=== PATIENT | female | born 1950 | race Caucasian/White ===

== ENCOUNTER → 2017-12-27 | Outpatient (CLI) | payer OTHER ==
[~2017-12-27] MED LIST: FUROSEMIDE 40 MG/4 ML VIAL ONE
== END ==
LOC: FIMAGING 08:17
PROVIDERS: ATTEND Physician Assistant Medical
PROC: CT131ZZ Planar Nuclear Medicine Imaging of Kidneys, Ureters and Bladder using Technetium 99m (Tc-99m) (ICD-10-PCS; principal; 2017-12-27)
DX: N20.0 Calculus of kidney (principal)
CPT/HCPCS: 78708; A9562; J1940

== ENCOUNTER → 2017-12-28 | Outpatient (CLI) | payer OTHER | LOC: FIMAGING 09:48 | PROVIDERS: ATTEND Physician Assistant Medical | DX: N13.2 Hydronephrosis with renal and ureteral calculous obstruction (principal); R35.0 Frequency of micturition; K80.20 Calculus of gallbladder without cholecystitis without obstruction ==

== ENCOUNTER → 2018-02-01 | Outpatient (CLI) | payer OTHER | LOC: FIMAGING 10:16 | PROVIDERS: ATTEND Internal Medicine | DX: Z12.31 Encounter for screening mammogram for malignant neoplasm of breast (principal) ==

== ENCOUNTER 2018-02-23 09:56 | Inpatient (IN) | payer OTHER ==
[2018-02-23 10:58] LABS: PLATELET COUNT 179 10^3/uL (150-400)
--- NOTE | 2018-02-25 14:54 | CPEKG ---
Test Reason : PREOP Blood Pressure : / mmHG Vent. Rate : 058 BPM Atrial Rate : 057 BPM P-R Int : 144 ms QRS Dur : 086 ms QT Int : 416 ms P-R-T Axes : 015 019 021 degrees QTc Int : 409 ms SINUS RHYTHM ATRIAL PREMATURE COMPLEX Confirmed by Nirav Carty ([id number]) on 02/25/2018 2:54:17 PM Referred By: Confirmed By:Nirav Carty
--- NOTE | 2018-02-28 16:34 | GHP ---
DATE OF ADMISSION: 03/01/2018 HISTORY OF PRESENT ILLNESS: This is a 67-year-old lady who has a nonfunctioning left kidney that is related to stone disease and she has been treated in the past with extracorporeal shockwave lithotrip sy. At the present time, she has a Mag 3 that describes 5% function of the left kidney. It is quite hydronephrotic and she has a 2 cm stone that is causing obstruction. Options discussed and she is a dmitted for a robotic-assisted left nephrectomy, partial ureterectomy. PAST HISTORY: Acquired UPJ obstruction, left hypothyroidism, kidney stones, vertigo. PAST SURGICAL HISTORY: Bladder sling and breast surgery. MEDICATIONS: Gabapentin, levothyroxine, probiotic. ALLERGIES: Epinephrine. FAMILY HISTORY: Heart disease. SOCIAL HISTORY: Current alcohol consumption is moderate. Nonsmoker. REVIEW OF SYSTEMS: Negative cardiac, respiratory, GI, and endocrine. PHYSICAL EXAMINATION: VITAL SIGNS: Stable. CHEST: Clear. HEART: Regular rate and rhythm. ABDOM EN: Normal. No organomegaly, rebound, or guarding. EXTREMITIES: Lower extremities are normal at t he present time. ASSESSMENT: She has a Mag 3 confirming minimal to no function of the left kidney due to obstructing renal stone. At the present time, we have recommended she undergo a nephrectomy and she is to be adm itted for that procedure. /[id number]/MODL
[2018-03-01] MEDS ORDERED: ceFAZolin 2 GM/DEXTROSE 100 ML IV ONE (05:34)
[2018-03-01] MEDS ORDERED: LIDOCAINE 1% 2 ML INJ ID PRN (05:35)
[2018-03-01] MEDS ORDERED: LR 1,000 ML IV ONE (05:35)
[2018-03-01] MEDS ORDERED: SCOPOLAMINE HYDROBROMIDE 1 MG/3 DAYS PATCH TD ONE (06:49)
[2018-03-01] MEDS ORDERED: MIDAZOLAM 2 MG/2 ML VIAL IVP ONE (06:49)
--- NOTE | 2018-03-01 06:56 | PDANEPAE ---
ANE History of Present Illness 67 Y/O FEMALE HERE FOR NEPHRECTOMY LEFT. ANE Past Medical History - Cardiovascular History Hx Hypertension: No Hx Arrhythmias: No Hx Chest Pain: No Hx Coronary Artery / Peripheral Vascular Disease: No Hx CHF / Valvular Disease: No Hx Palpitations: No Cardiovascular History Comment: high cholesterol - Pulmonary History Hx COPD: No Hx Asthma/Reactive Airway Disease: No Hx Recent Upper Respiratory Infection: No Hx Oxygen in Use at Home: No Hx Sleep Apnea: No Sleep Apnea Screening Result - Last Documented: Negative - Neurologic History Hx Cerebrovascular Accident: No Hx Seizures: No Hx Dementia: No Neurologic History Comment: paroxysmal vertigo - thought it was MS at first but it has never been proven, gabapentin helps - Endocrine History Hx Diabetes: No Endocrine History Comment: hypothyroid - Renal History Hx Renal Disorders: Yes Renal History Comment: renal stones. current dx acquired uteropelvic junction obstruction - Liver History Hx Hepatic Disorders: No - Neurological & Psychiatric Hx Hx Neurological and Psychiatric Disorders: No Neurological / Psychiatric History Comment: "under a lot of stress" - Cancer History Hx Cancer: No - Congenital Disorder History Hx Congenital Disorders: No - GI History Hx Gastrointestinal Disorders: No - Other Health History Other Health History: wears glasses. 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 torn rotator cuff, right. arthritis. upper plate - Chronic Pain History Chronic Pain: No - Surgical History Prior Surgeries: hysterectomy. lithotripsy for kidney stones. appy. tonsillectomy. wrist repair. foot surgery. bladder sling. broken nose repair. breast biopsies ANE Review of Systems Review of Systems: - Exercise capacity METS (RN): 3 METS ANE Patient History - Allergies Allergies/Adverse Reactions: epinephrine Allergy (Verified 02/20/18 17:55) Pt reports feeling "drunk," loss of leg control, slurred spe Anesthesia Allergy (Uncoded 02/20/18 17:55) Vomiting, sensitive to some general anesthetics - Home Medications Home Medications: Cholecalciferol Vit D3 [Vitamin D3 2000 units tab (OTC)] 2,000 units PO DAILY [Last Taken 02/22/18] Gabapentin [Neurontin 100 MG (*)] 100 mg PO TID 02/16/18 [Last Taken 03/01/18 04 :00] Levothyroxine [Synthroid 100 mcg (*)] 100 mcg PO DAILY06 02/16/18 [Last Taken 04:00] [place]-3 Fatty Acids [Fish Oil 1000 mg (*)] 1,000 mg PO DAILY 02/16/18 [Last Taken 02/22/18] RX: Herbals/Supplements -Info Only 1 ea PO DAILY 02/16/18 [Last Taken 02/22/18] - NPO status NPO Since - Liquids (Date): 02/28/18 NPO Since - Liquids (Time): 19:00 NPO Since - Solids (Date): 02/28/18 NPO Since - Solids (Time): 15:30 - Smoking Hx Smoking Status: Never smoked - Family Anes Hx Family Hx Anesthesia Complications: none ANE Labs/Vital Signs - Labs Result Diagrams: 02/23/18 10:13 02/23/18 10:13 - Vital Signs Blood Pressure: 162/99 Heart Rate: 62 Respiratory Rate: 16 O2 Sat (%): 96 Height: 162.56 cm Weight: 64.864 kg ANE Physical Exam - Airway Mallampati Score: Class 2 Mouth exam: poor dentition - Pulmonary Pulmonary: clear to auscultation - Cardiovascular Cardiovascular: regular rate and rhythym - ASA Status ASA Status: II, III ANE Anesthesia Plan Lines/Monitors: arterial line Total IV Anesthesia: Yes
--- NOTE | 2018-03-01 07:00 | PDHPUP ---
History & Physical Update H&P update statement: This history and physical update is based on an assessment of the patient which was completed after admission or registration (within 24 hours), but prior to the surgery/procedure. H&P update: H&P reviewed & patient examined, no change in patient's condition since H&P completed
[2018-03-01] MEDS ORDERED: PROPOFOL/EMULSION 500 MG/50 ML BOTTLE IV ONE ×3 (07:04→08:35)
[2018-03-01] MEDS ORDERED: fentaNYL 100 MCG/2 ML INJ ONE ×3 (07:14→10:44)
[2018-03-01] MEDS ORDERED: DEXAMETHASONE 4 MG/ML VIAL ONE (07:15)
[2018-03-01] MEDS ORDERED: KETAMINE 200 MG/20 ML VIAL ONE (07:15)
[2018-03-01] MEDS ORDERED: ROCURONIUM 50 MG/5 ML VIAL ONE ×2 (08:06)
[2018-03-01] MEDS ORDERED: PETROLAT,WHT/MIN OIL/SOD CHL 3.5 GM OPHT.OINT ONE (08:10)
[2018-03-01] MEDS ORDERED: BUPIVACAINE 0.5% 30 ML SDV ONE (08:11)
--- NOTE | 2018-03-01 08:47 | POSTANESTH ---
Post Anesthetic Evaluation Respiratory Status: Normal, Stable Level of Consciousness/Mental Status: Can Participate in Eval Pain Control: Adequate, Prn Tx Ordered Nausea/Vomiting Control: Adequate, Prn Tx Ordered (TIVA)
[2018-03-01] MEDS ORDERED: ONDANSETRON 4 MG/2 ML VIAL ONE (09:13)
[2018-03-01] MEDS ORDERED: SUGAMMADEX SODIUM 200 MG/2 ML VIAL IVP ONE ×2 (09:13→12:13)
[2018-03-01] MEDS ORDERED: PROPOFOL 200 MG/20 ML VIAL ONE (09:15)
[2018-03-01] MEDS ORDERED: LR 500 ML IV PRN (09:19)
[2018-03-01] MEDS ORDERED: LABETALOL HCL 5 MG/ML 20 ML MDV IVP PRN (09:19)
[2018-03-01] MEDS ORDERED: DEXAMETHASONE 4 MG/ML VIAL IVP PRN (09:19)
[2018-03-01] MEDS ORDERED: DIAZEPAM 5 MG/ML 1 ML SYR IVP PRN (09:19)
[2018-03-01] MEDS ORDERED: MEPERIDINE 25 MG/0.5 ML AMP IVP PRN (09:19)
[2018-03-01] MEDS ORDERED: HYDROmorphONE/DILAUDID 2 MG/ML INJ IVP PRN (09:19)
[2018-03-01] MEDS ORDERED: NALOXONE HCL 0.4 MG/ML INJ IVP PRN ×2 (09:19→09:47)
[2018-03-01] MEDS ORDERED: ONDANSETRON 4 MG/2 ML VIAL IVP PRN (09:19)
[2018-03-01] MEDS ORDERED: PROMETHAZINE HCL 25 MG/ML INJ IVP PRN (09:19)
[2018-03-01] MEDS ORDERED: METOCLOPRAMIDE 10 MG/2 ML VIAL IVP PRN ×2 (09:19→09:47)
[2018-03-01] MEDS ORDERED: hydrALAZINE 20 MG/ML VIAL ONE (09:37)
[2018-03-01] MEDS ORDERED: HYDROmorphONE/DILAUDID 6 MG/30 ML PCA IV PRN (09:47)
[2018-03-01] MEDS ORDERED: oxyCODONE IR 5 MG TAB PO PRN (09:47)
--- NOTE | 2018-03-01 09:47 | POSTOPPROG ---
Post Op Note Date of Operation: 03/01/18 (dictated) Surgeon: Froilan Montano Clinical Training Coordinator: BARBY Anesthesiologist: Precious Guzman Anesthesia: GET(General Endotracheal) Pre-op Diagnosis: left nephrolithiasis, left hydronephrosis Procedure: left RA nephrectomy and partial ureterectomy Inf/Abcess present in the surg proc area at time of surgery?: No EBL: Minimal Specimen(s): sent
[2018-03-01] MEDS ORDERED: ZOLPIDEM TARTRATE 5 MG TAB PO PRN (09:48)
--- NOTE | 2018-03-01 10:30 | GOP ---
DATE OF OPERATION: 03/01/2018 SURGEON: Froilan Montano MD BOAT ENGINES INSTALLER: Seda Silverman CFA ANESTHESIOLOGIST: , Dr. Precious Guzman. PREOPERATIVE DIAGNOSIS: Nonfunctioning left hydronephrotic kidney with stones. POSTOPERATIVE DIAGNOSIS: Nonfunctioning left hydronephrotic kidney with stones. PROCEDURE PERFORMED: Nephrectomy, partial ureterectomy, left side, robotically assisted. FINDINGS: SPECIMENS: Sent for pathology. ESTIMATED BLOOD LOSS: Less than 50 mL. DESCRIPTION OF PROCEDURE: After appropriate general anesthesia, prepped and draped in normal sterile fashion, appropriate position and appropriate time-out, a Veress needle was placed in the left upper quadrant and inflated the intraabdominal cavity to 15 mmHg pressure. Then we placed a 12 mm camera port. She had a 15 mm development assistant port and two 8 mm robot arm ports placed. She had adhesions intra-a bdominally that were taken down sharply, and confirmed no bowel or vascular injury during that dissec tion. Then I mobilized the left colon just as it crossed over the iliac vessels, up to where the col o-splenic ligament attachments were. I identified the ureter and the gonadal vein, and dissected casper t up where I could identify the renal vein and renal artery of the left kidney and a vascular stapler was used to provide hemostatic closure and division of the vessel. I then at that point, divided th e ureter and gonadal vein as it crossed over the iliac vessels, and then dissected out the kidney and left the perinephric fat on the kidney. She had some inflammatory reaction noted at the superior po le of the kidney. I was able dissect the pancreas and the spleen separate from that, and no damage t o either of those organs. The left adrenal gland was partially gone across with the vascular clamp/s tapling device because of its adhesion and inflammation attachment. Then, at that point, the kidney was open and I aspirated over 250 mL of fluid, placed this in a bag and then decreased the intraabdom inal pressure. There was no bleeding noted. I did place Surgicel at the tip of the spleen and the a ttachment of the upper kidney to that area just because of some small venous oozing. There was no po oling of blood identified at that point. I looked all the operative site. There was no staining of the intraabdominal space, no bleeding and no bowel injury of any kind identified. At that point, I d id a suture closure with a fascial closure device of the camera port, and then opened the development assistant p ort up to where I could deliver the bag and the specimen out, and then closed that fascial layer with an 0 Vicryl. The subcutaneous tissue was hemostatic and then 4-0 Monocryl was used to close all the skin sites. Marcaine was used to do the local field block. COMPLICATIONS: None. Copy requested to: Dr. Fung /[id number]/MODL
[2018-03-01] MEDS: fentaNYL 100 MCG/2 ML INJ IVP PRN ×3 (10:46→11:34)
[2018-03-01] MEDS: D5W 1/2 NS W/ 20 KCl/L 1,000 ML IV SCH ×2 (11:56→22:13)
[2018-03-01] MEDS ORDERED: morphINE PCA 30 MG/30 ML PCA IV PRN (14:05)
--- NOTE | 2018-03-01 15:37 | PDMN ---
Medical Necessity Medical necessity: CPT 93371 L nephrectomy with partial ureterectomy, [facility] IP only
[2018-03-01] MEDS: GABAPENTIN 100 MG CAP PO SCH (22:13)
[2018-03-02 05:28] LABS: PLATELET COUNT 175 10^3/uL (150-400)
[2018-03-02] MEDS: LEVOTHYROXINE 100 MCG TAB PO SCH (06:26)
[2018-03-02] MEDS: D5W 1/2 NS W/ 20 KCl/L 1,000 ML IV SCH (07:46)
[2018-03-02] MEDS: GABAPENTIN 100 MG CAP PO SCH ×3 (07:51→20:51)
--- NOTE | 2018-03-02 08:40 | SOAPPROG ---
SOAP Progress Note Assessment/Plan: Assessment: Hydronephrosis concurrent with and due to calculi of kidney and ureter Acute POD #1 left nephrectomy, Continue care, consider DC when appropriate Plan: cont care 03/02/18 13:07 Subjective: doing well Objective: Vital Signs Temp Pulse Resp BP Pulse Ox 36.8 C 67 16 157/88 H 99 03/02/18 04:45 03/02/18 04:45 03/02/18 04:45 03/02/18 04:45 03/02/18 04:45 Laboratory Results 03/02/18 04:44 03/02/18 04:44 03/01/18 03/02/18 03/03/18 05:59 05:59 05:59 Intake Total 1750 1100 Output Total 1800 Balance -50 1100 Physical Exam - Physical Exam General Appearance: alert Neck: supple Respiratory: No respiratory distress Cardiac/Chest: regular rate, rhythm Abdomen: soft Back: No CVA tenderness Skin: warm/dry Extremities: No calf tenderness Neuro/Psych: alert, oriented x 3 ICD10 Worksheet Patient Problems: Problems Problem Status Onset Hydronephrosis concurrent with and due to calculi of kidney and ureter Acute - ICD10 Problem Qualifiers (1) Hydronephrosis concurrent with and due to calculi of kidney and ureter
[2018-03-02] MEDS ORDERED: Herbals/Supplements -Info Only PO SCH (09:00)
[2018-03-02] MEDS: CHOLECALCIFEROL VIT D3 2,000 UNITS TAB/CAP PO SCH (10:20)
[2018-03-02] MEDS: OMEGA-3 FATTY ACIDS 1,000 MG CAP PO SCH (10:20)
--- NOTE | 2018-03-02 12:15 | ASMTCMCOM ---
CM Note CM Note Notes: Pt is a 67 y/o female with a hx of kidney stones. She presented with no function in her left kidney and with stones that appeared to be inbedded in the renal wall. She had her left kidney removed and had a partial ureterectomy. Pt lives independently and works at [employer]. No CM needs are anticipated. CM will follow for changes. D/C Plan: Anticipate independent. Date Signed: 03/02/2018 12:14 PM Electronically Signed By:Josefa York
[2018-03-02] MEDS: ACETAMINOPHEN 325 MG TAB PO PRN ×2 (13:26→20:51)
--- NOTE | 2018-03-02 13:50 | ASMTCMCOM ---
CM Note CM Note Notes: Spoke with pt in the room. Pt admitted for hydronephrosis from embedded calculi, leading to a nephrectomy. Pt lives alone and has son who has "disowned her after asking her to move to [place]". Pt lives in room she rents in a [employer] basement and has two cats who are currently boarded. Pt has no friends or family who can help and pt states she cannot afford to continue boarding them and will need to return home, however is concerned about coping on her own. Pt drove her car here and is insisting on driving it home upon discharge. No therapies ordered at this time. RN requested to order for eval for PT/OT homecare. Pt states she is needing help getting to the bathroom and is concerned about stairs at home. CM to follow. D/C Plan: PT/OT homecare possibly. Pending eval Date Signed: 03/02/2018 01:48 PM Electronically Signed By:Barbie Orosco
--- NOTE | 2018-03-02 16:49 | ASMTCMCOM ---
CM Note CM Note Notes: ADDENDUM: Left message with [employer] to request meals for pt per pt's request. Pt lives in [place]. Date Signed: 03/02/2018 04:33 PM Electronically Signed By:Barbie Orosco
[2018-03-03] MEDS: LEVOTHYROXINE 100 MCG TAB PO SCH (05:53)
[2018-03-03] MEDS: ACETAMINOPHEN 325 MG TAB PO PRN ×3 (05:53→22:37)
[2018-03-03] MEDS: GABAPENTIN 100 MG CAP PO SCH ×3 (05:53→22:36)
[2018-03-03] MEDS: OMEGA-3 FATTY ACIDS 1,000 MG CAP PO SCH (10:02)
[2018-03-03] MEDS: CHOLECALCIFEROL VIT D3 2,000 UNITS TAB/CAP PO SCH (10:02)
--- NOTE | 2018-03-03 10:26 | SOAPPROG ---
JULIETA Progress Note Assessment/Plan: Assessment: Hydronephrosis concurrent with and due to calculi of kidney and ureter Acute POD #2 left nephrectomy, Continue care, consider DC when appropriate, feels she can not get her cats today so prefers staying. 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 Objective: Vital Signs Temp Pulse Resp BP Pulse Ox 36.7 C 80 18 132/96 H 91 L 03/03/18 08:00 03/03/18 08:00 03/03/18 03:52 03/03/18 08:00 03/03/18 08:00 Laboratory Results 03/02/18 04:44 03/02/18 04:44 03/02/18 03/03/18 03/04/18 05:59 05:59 05:59 Intake Total 1750 4139 Output Total 1800 1750 Balance -50 2389 Physical Exam - Physical Exam General Appearance: alert Neck: supple Respiratory: No respiratory distress Cardiac/Chest: regular rate, rhythm Abdomen: soft, distended Back: No CVA tenderness Extremities: No calf tenderness, No Kim's sign Neuro/Psych: oriented x 3 ICD10 Worksheet Patient Problems: Problems Problem Status Onset Hydronephrosis concurrent with and due to calculi of kidney and ureter Acute - ICD10 Problem Qualifiers (1) Hydronephrosis concurrent with and due to calculi of kidney and ureter
[2018-03-03] MEDS: SENNOSIDES/DOCUSATE SODIUM TAB PO PRN ×2 (11:52→22:36)
[2018-03-04] MEDS: LEVOTHYROXINE 100 MCG TAB PO SCH (06:28)
[2018-03-04] MEDS: CHOLECALCIFEROL VIT D3 2,000 UNITS TAB/CAP PO SCH (09:28)
[2018-03-04] MEDS: OMEGA-3 FATTY ACIDS 1,000 MG CAP PO SCH (09:28)
[2018-03-04] MEDS: SENNOSIDES/DOCUSATE SODIUM TAB PO PRN (09:28)
[2018-03-04] MEDS: GABAPENTIN 100 MG CAP PO SCH ×3 (09:28→22:41)
[2018-03-04] MEDS: ACETAMINOPHEN 325 MG TAB PO PRN (09:28)
--- NOTE | 2018-03-04 11:07 | SOAPPROG ---
SOAP Progress Note Assessment/Plan: Assessment: POD 2 with slight ileus (no flatus p op and hypoactive BS) and concerns regarding ability to manage at home with snow Plan:Dulcolax suppository and observe 03/04/18 11:02 Objective: Vital Signs Temp Pulse Resp BP Pulse Ox 36.9 C 58 L 14 140/83 H 91 L 03/04/18 07:14 03/04/18 07:14 03/04/18 07:14 03/04/18 07:14 03/04/18 07:14 Laboratory Results 03/02/18 04:44 03/02/18 04:44 03/03/18 03/04/18 03/05/18 05:59 05:59 05:59 Intake Total 4139 700 Output Total 1750 1100 Balance 2389 -400 Physical Exam - Physical Exam Respiratory: lungs clear Abdomen: No normal bowel sounds (hypoactive BS) ICD10 Worksheet Patient Problems: Problems Problem Status Onset Hydronephrosis concurrent with and due to calculi of kidney and ureter Acute
[2018-03-04] MEDS ORDERED: BISACODYL 10 MG SUPP PR ONE ×2 (11:13→13:30)
[2018-03-05] MEDS: LEVOTHYROXINE 100 MCG TAB PO SCH (05:59)
[2018-03-05 07:34] VITALS: BP 130/77
[2018-03-05] MEDS: GABAPENTIN 100 MG CAP PO SCH (09:07)
[2018-03-05] MEDS: CHOLECALCIFEROL VIT D3 2,000 UNITS TAB/CAP PO SCH (09:08)
[2018-03-05] MEDS: OMEGA-3 FATTY ACIDS 1,000 MG CAP PO SCH (09:08)
--- NOTE | 2018-03-05 13:26 | SOAPPROG ---
SOLATRELL Progress Note Assessment/Plan: Assessment: Hydronephrosis concurrent with and due to calculi of kidney and ureter Acute POD #4 left nephrectomy, consider DC Plan:DC plan 03/05/18 13:25 Objective: Vital Signs Temp Pulse Resp BP Pulse Ox 36.9 C 64 16 130/77 H 91 L 03/05/18 07:30 03/05/18 07:30 03/05/18 07:30 03/05/18 07:30 03/05/18 07:30 Laboratory Results 03/02/18 04:44 03/02/18 04:44 03/04/18 03/05/18 03/06/18 05:59 05:59 05:59 Intake Total 700 700 Output Total 1100 Balance -400 700 ICD10 Worksheet Patient Problems: Problems Problem Status Onset Hydronephrosis concurrent with and due to calculi of kidney and ureter Acute - ICD10 Problem Qualifiers (1) Hydronephrosis concurrent with and due to calculi of kidney and ureter
--- NOTE | 2018-03-05 14:24 | ASDISCHSUM ---
Discharge Information Plan Status:Home with No Needs Medically Cleared to Leave:03/04/2018 Discharge Date:03/04/2018 CM D/C Disposition:Home, Routine, Self-Care ADT D/C Disposition:Home, Routine, Self-Care Projected Discharge Date:03/04/2018 Transportation at D/C:Self Discharge Delay Reason: Follow-Up Date:03/04/2018 Discharge Slot: Final Diagnosis: Placement Information Patient Contact Information Contact Name:ROYA Relationship:Mark Address: City: [facility] Phone: State/Zip Code: Email: Financial Information Financial Class:Medicare Primary Plan Desc:MEDICARE INPATIENT Primary Plan Number:[id number] Secondary Plan Desc:[facility] [place] Secondary Plan Number:[id number] Assessment Information LACE LACE Length of stay for Answers: 4-6 days current admission Acuity / Level of Answers: Yes Care: Did the patient have an inpatient admission? Comorbidities - select Answers: Other Notes: Hypothyroid all that apply # of Emergency department Answers: 0 visits in the last 6 months Score: 8 Date Signed: 03/05/2018 02:23 PM Electronically Signed By:ANDREAS Rivera [facility] CM Progress Note CM Note CM Note Notes: Pt is a 67 y/o female with a hx of kidney stones. She presented with no function in her left kidney and with stones that appeared to be inbedded in the renal wall. She had her left kidney removed and had a partial ureterectomy. Pt lives independently and works at [employer]. No CM needs are anticipated. CM will follow for changes. D/C Plan: Anticipate independent. Date Signed: 03/02/2018 12:14 PM Electronically Signed By:Josefa York [facility] Progress Note CM Note CM Note Notes: Spoke with pt in the room. Pt admitted for hydronephrosis from embedded calculi, leading to a nephrectomy. Pt lives alone and has son who has "disowned her after asking her to move to [place]". Pt lives in room she rents in a [employer] basement and has two cats who are currently boarded. Pt has no friends or family who can help and pt states she cannot afford to continue boarding them and will need to return home, however is concerned about coping on her own. Pt drove her car here and is insisting on driving it home upon discharge. No therapies ordered at this time. RN requested to order for eval for PT/OT homecare. Pt states she is needing help getting to the bathroom and is concerned about stairs at home. CM to follow. D/C Plan: PT/OT homecare possibly. Pending eval Date Signed: 03/02/2018 01:48 PM Electronically Signed By:Barbie Orosco [facility] Progress Note CM Jessica PATRICIO Note Notes: ADDENDUM: Left message with [employer] to request meals for pt per pt's request. Pt lives in [place]. Date Signed: 03/02/2018 04:33 PM Electronically Signed By:Barbie Orosco Intervention Information Intervention Type:*IM-Signed Date of Service:03/05/2018 01:51 PM Patient Type:Inpatient Staff Member:Laura Urrutia Hours: Discipline: Severity: Comment:
== END 2018-03-05 14:25 | disposition home or self-care (01) | DRG 661 ==
LOC: UNDOADMIN 09:56 → F3N 09:56 → F3E 03-01 04:53 → F1N 03-01 09:39
PROVIDERS: ADMIT Specialist; ATTEND Specialist
PROC: 0TT14ZZ Resection of Left Kidney, Percutaneous Endoscopic Approach (ICD-10-PCS; principal; 2018-03-01 07:15)
PROC: 8E0W4CZ Robotic Assisted Procedure of Trunk Region, Percutaneous Endoscopic Approach (ICD-10-PCS; principal; 2018-03-01 07:15)
DX: N13.2 Hydronephrosis with renal and ureteral calculous obstruction (principal); E78.00 Pure hypercholesterolemia, unspecified; H81.10 Benign paroxysmal vertigo, unspecified ear; E03.9 Hypothyroidism, unspecified
CPT/HCPCS: 97116-GP; 97161-GP; 97530-GP; G8978-GP-CJ; G8979-GP-CI; J0360; J0690; J1100; J1170; J2250; J2270; J2405; J2704; J3010

== ENCOUNTER → 2018-07-23 | Outpatient (CLI) | payer OTHER | LOC: FLAB 10:49 → FIMAGING 10:50 → EDSTATUS 12:03 | PROVIDERS: ATTEND Physician Assistant Medical | DX: N20.0 Calculus of kidney (principal); M47.816 Spondylosis without myelopathy or radiculopathy, lumbar region ==

== ENCOUNTER → 2018-08-15 | Outpatient (CLI) | payer OTHER | LOC: BHFA 13:30 | PROVIDERS: ATTEND Internal Medicine Cardiovascular Disease | DX: R06.02 Shortness of breath (principal); I25.10 Atherosclerotic heart disease of native coronary artery without angina pectoris; Z95.5 Presence of coronary angioplasty implant and graft | CPT/HCPCS: 78452; 93017; A9500; J2785 ==

== ENCOUNTER 2018-08-24 05:38 | Observation (INO) | payer OTHER ==
[2018-08-24] MEDS ORDERED: diphenhydrAMINE 25 MG CAP PO ONE ×2 (06:14→06:36)
[2018-08-24] MEDS ORDERED: DIAZEPAM 5 MG TAB PO ONE (06:14)
[2018-08-24] MEDS ORDERED: NS 1,000 ML IV ONE (06:14)
[2018-08-24] MEDS ORDERED: FAMOTIDINE 20 MG TAB PO ONE (06:14)
[2018-08-24] MEDS ORDERED: ASPIRIN EC 325 MG TAB PO ONE ×2 (06:14→06:36)
[2018-08-24] MEDS ORDERED: FAMOTIDINE 20 MG TAB ONE (06:36)
[2018-08-24] MEDS ORDERED: DIAZEPAM 5 MG TAB ONE (06:37)
[2018-08-24] MEDS ORDERED: CLOPIDOGREL BISULFATE 75 MG TAB ONE (06:57)
--- NOTE | 2018-08-24 07:13 | PDPROPOC ---
Sedation Plan of Care Sedation Plan of Care: mental status noted, patient educated of risks, benefits , alternatives, patient can tolerate sedation ASA Classification: ASA 2 Planned drugs: fentanyl, midazolam Mallampati Score: Class 2 Mallampati Reference Image: Patient passed 3-3-2 rule?: Yes
[2018-08-24] MEDS ORDERED: fentaNYL 100 MCG/2 ML INJ ONE (07:14)
[2018-08-24] MEDS ORDERED: LIDOCAINE 1% 300 MG/30 ML SDV ONE (07:14)
[2018-08-24] MEDS ORDERED: IOPAMIDOL (ISOVUE-370) 150 ML BTL IV ONE (07:14)
[2018-08-24] MEDS ORDERED: MIDAZOLAM 2 MG/2 ML VIAL ONE (07:14)
[2018-08-24 07:15] LABS: PLATELET COUNT 160 10^3/uL (150-400)
[2018-08-24] MEDS ORDERED: CLOPIDOGREL BISULFATE 75 MG TAB PO ONE (07:15)
[2018-08-24 07:25] LABS: PROTIME(PATIENT) 12.8 SEC (12.0-15.0)
[2018-08-24] MEDS ORDERED: BIVALIRUDIN 250 MG/5 ML VIAL IV ONE (08:16)
[2018-08-24] MEDS ORDERED: ATROPINE SULFATE 1 MG/10 ML SYR ONE (08:22)
[2018-08-24] MEDS ORDERED: NITROGLYCERIN 1,500 MCG/15 ML VIAL MISC ONE (08:22)
[2018-08-24] MEDS ORDERED: OXYCODONE/APAP 5/325 TAB PO PRN (09:02)
[2018-08-24] MEDS ORDERED: ATROPINE SULFATE 1 MG/10 ML SYR IVP PRN (09:02)
[2018-08-24] MEDS ORDERED: NITROGLYCERIN 0.4 MG BTL SL PRN (09:02)
[2018-08-24] MEDS ORDERED: HYDROCODONE/APAP 5/325 TAB PO PRN (09:02)
[2018-08-24] MEDS ORDERED: TEMAZEPAM 15 MG CAP PO PRN (09:02)
[2018-08-24] MEDS ORDERED: LORazepam 2 MG/ML INJ IVP PRN (09:02)
[2018-08-24] MEDS ORDERED: ONDANSETRON 4 MG/2 ML VIAL IVP PRN (09:02)
--- NOTE | 2018-08-24 09:48 | CPIP ---
[f rep st] INVASIVE CARDIAC PROCEDURE DATE OF PROCEDURE: 08/24/2018 INDICATIONS FOR PROCEDURE: Positive stress test, chest pain. PROCEDURE: 1. Nonselective right groin sheathogram. 2. 7-Indonesian sheath right common vein. 3. Right heart catheterization, Dora-Romulo catheter. 4. Bilateral coronary angiography. 5. Left heart catheterization. 6. Left ventriculogram. 7. Percutaneous coronary intervention of mid left circumflex utilizing Synergy 2.25 x 16 mm drug-eluting stent. HISTORY: Briefly, this is a 68-year-old female with history of coronary artery disease status post PCI at [facility]. The patient has been complaining of shortness of breath with minimal exertion. This is considered to be anginal equivalent. The patient was consented for left heart catheterization. DESCRIPTION OF PROCEDURE: After informed consent, the patient was brought to [facility] where the right groin was prepped and draped in a sterile fashion. Using lidocaine, a short 6-Indonesian sheath placed in the right common femoral artery. A 7-Indonesian sheath right common femoral vein. A Dora-Romulo catheter was advanced. Wedge pressure was mean of 16, A-wave of 16, V-wave 21, PA pressure systolic 33, diastolic 8, mean of 18. RV pressure systolic 32, diastolic 5, end of 12. RA pressure mean of 8, A-wave 11, V-wave 9. Cardiac output was 4.0 , index was 2.4. AO sat was 95%. PA sat was 75%. Dora Romulo catheter was then removed. The JR4 catheter was advanced in the left coronary artery. Image of the left coronary artery showed normal left main. There was a left circumflex artery giving off a tiny marginal 1 proximally and then had a 90% narrowing just distal to this. There was a bifurcating marginal artery distally which was a small vessel but long and free of disease. There was a large marginal 1 artery coming off early in the circ, which had 20% to 30% diffuse disease but no high-grade obstruction. There was an LAD which was stented in its proximal and distal aspect. Both stents were widely patent. There was an area of narrowing between the stents, which was only approximately about 30%. Distal LAD appeared to be widely patent. The diagonal artery coming off the 1st stented portion which was widely patent as well. After the images were obtained , the JL4 catheter was removed. The JR4 catheter was advanced to the right coronary artery. Images of the right coronary artery revealed 30% ostial disease but no damping and good reflux. There was mild 20% to 30% disease to the proximal mid section. There was a very large RPD and RPL left coming off. The ostium of the RPDA had what appeared to be 30% to 40% disease. Distal to this there was another area of 20% disease. The extreme distal vessels appeared to be widely patent and free of disease. After these images were obtained, the JR4 catheter was removed. A pigtail catheter was advanced to the left ventricle. EDP was 15 mmHg. Left ventriculogram in the BLOOM position showed an EF of approximately 50% with what appeared to be aneurysmal changes in the anterior basal segment of the LV. No pullback gradient between the LV and aorta. Pigtail catheter was removed with an 0.035 wire. INTERVENTIONAL REPORT: At this time given the high-grade lesion in the mid left circumflex artery, we decided to proceed with intervention of this area. The patient Plavix p.o. as she was chronically on Plavix, started on Angiomax bolus drip. EBU 3.5 guide was advanced to the left coronary artery. Choice CT was placed successfully down the lesion in the mid left circumflex artery. Predilatation commenced with a 2.0 x 12 U4 balloon at 10 atmospheres as performed. We then proceeded with stenting this vessel with a 2.5 x 16 synergy drug-eluting stent. Post deployment we administered 200 mcg of nitroglycerin IC post deployment. Angiography was obtained which showed excellent patency of the stented regions with no evidence of dissection or perforation. There was BOOKER-3 flow through the distal vessels. The wire was removed. Guide catheter was removed with a 0.035 wire. Right groin was closed with 6-Indonesian Angio-Seal. The patient tolerated the procedure well with no complications. IMPRESSION: Patent LAD stents. Mild ostial RCA and RPDA disease. Normal pulmonary pressures. Aneursymal changes of LV. Successful percutaneous coronary intervention of mid left circumflex artery utilizing single Synergy drug- eluting stent. PLAN: The patient will have 3 hours of bed rest. The sheath in the right groin will be discontinued. The venous sheath will be discontinued at 10 a.m. Echocardiogram to be obtained given the aneurysmal changes of the left ventricle. Further orders following clinical course. /[id number]/MODL MTDD
--- NOTE | 2018-08-24 13:51 | ECHO ---
[email or web address] [address] [address] Main: [phone] Echocardiography Examination Transthoracic Name: LESLIE SALVADOR MR#: [id number] Study Date: 08/24/2018 Study Time: 11:53 AM Date of : 1950 Age: 68 year(s) Height: 162.6 cm (64 in.) Weight: 62.6 kg (138 lb.) BSA: 1.67 m2 Gender: Female Examination: Echo Contrast: Image Quality: Rhythm: Sinus bradycardia Heart Rate: 35 bpm BP: 135 mmHg/83 mmHg Indication: Post Cath Procedure Staff Referring Physician: Smasher Hand: Toni Shoemaker BENJIE Reading Physician: Sixto Murphy MD Requesting Provider: Ordering Physician: Jeramy Mendoza MD Indication: Post Cath Measurements Chambers AV/MV Label Value Normal Value Label Value Normal Value LVOT Vmax 0.94 m/s (0.7m/s - 1.1m/s) AV PGmax 7 mmHg LVOTd 1.9 cm (1.8cm - 2cm) AV PGmean 4 mmHg LVOT VTI 26.9 cm (18cm - 22cm) AV Vmax 1.31 m/s LVDd, 2D 4.4 cm (3.9cm - 5.3cm) FLETCHER (Vmax) 2 cm2 LVDs, 2D 3.3 cm (2.1cm - 4cm) FLETCHER (VTI) 1.9 cm2 IVSd, 2D 0.8 cm (0.6cm - 1.1cm) MV E Vmax 0.89 m/s LVPWd, 2D 1 cm MV A Vmax 1.15 m/s LVEF, 2D 47 % (54% - 74%) MV E/A 0.77 LVOT PGmean 2 mmHg MV E/E' lateral 20.3 LVOT Vmean 0.63 m/s MV E/E' septal 19.9 (0.45 - 1.25) RVDd, 2D 2.6 cm (1.9cm - 3.8cm) MV E' septal 0.04 m/s Additional Vessels MV E' lateral 0.04 m/s Label Value Normal Value MV E/E' mean 22.25 AoRoot, MM 3.3 cm (2.2cm - 3.7cm) MV E' mean 0.04 m/s TV/PV Label Value Normal Value RA Pressure 5 mmHg RVSP 34 mmHg TR Pmax 29 mmHg Patient: LESLIE SALVADOR Study Date: 08/24/2018 Page 1 of 3 11:53 AM TR Vmax 2.69 m/s UT End rodney Kevin 0.6 cm/s PV PGmax 2 mmHg PV Vmax, Caliper 0.76 m/s (0.6m/s - 0.9m/s) Conclusions Left Ventricle: CONCLUSIONS:1)Mildly reduced LV systolic function with a LVEF of 47% with mild hypokinesis of inferior-posterior lópez. No aneursym noted.2)Borderline concentric LVH with mild diastolic dysfunction noted.3)Mild left atrial enlargement noted.4)Mild to moderate MR without MV prolapse.5)Mild TR with estimated normal PA pressures. Findings Left Ventricle: There mid inferolateral hypokinesis. There is no evidence of aneurysmal changes in the anterior basilar segement of the LV.. Left ventricle is normal in size. CONCLUSIONS: 1)Mildly reduced LV systolic function with a LVEF of 47% with mild hypokinesis of inferior-posterior lópez. No aneursym noted. 2)Borderline concentric LVH with mild diastolic dysfunction noted. 3)Mild left atrial enlargement noted. 4)Mild to moderate MR without MV prolapse. 5)Mild TR with estimated normal PA pressures. The LV wall thickness is at the upper limits of normal. Grade I Diastolic Dysfunction. Borderline concentric LV hypertrophy. Right Ventricle: Normal size right ventricle. The RV function appears grossly normal. Left Atrium: The left atrium is mildly dilated. Right Atrium: The right atrium is normal in size. Mitral Valve: Mitral valve appears structurally normal. Mild to moderate mitral regurgitation. No mitral valve stenosis. There is mild mitral calcification. Aortic Valve: No significant aortic valve regurgitation. Aortic leaflets exhibit no calcification. The aortic valve is trileaflet. Tricuspid Valve: Tricuspid valve leaflets are normal in appearance and function. Mild tricuspid regurgitation. Right Ventricular systolic pressure is measured at 34 mmHg. Pulmonary artery pressure normal. Pulmonic Valve: Pulmonic leaflets are normal in appearance and function. Aorta: The aorta is normal. The aortic root size in M-mode measures 3.3 cm. Aorta Measurements AoRoot, MM is 3.3 cm. IVC: The inferior vena cava is normal in size. Pericardium: No pericardial effusion. Exam Details Procedure Ordered: Echo Patient: LESLIE SALVADOR Study Date: 08/24/2018 Page 2 of 3 11:53 AM (No Signature Object) Patient: LESLIE SALVADOR Study Date: 08/24/2018 Page 3 of 3 11:53 AM [id number]
[2018-08-24] MEDS ORDERED: ATORVASTATIN CALCIUM 10 MG TAB PO SCH (21:00)
[2018-08-25 04:50] LABS: PLATELET COUNT 143 10^3/uL (150-400)
[2018-08-25] MEDS ORDERED: LEVOTHYROXINE 100 MCG TAB PO SCH (06:00)
[2018-08-25 07:35] VITALS: BP 149/73
[2018-08-25] MEDS ORDERED: OMEGA-3 FATTY ACIDS 1,000 MG CAP PO SCH (09:00)
[2018-08-25] MEDS ORDERED: CLOPIDOGREL BISULFATE 75 MG TAB PO SCH (09:00)
[2018-08-25] MEDS ORDERED: CHOLECALCIFEROL VIT D3 2,000 UNITS TAB/CAP PO SCH (09:00)
[2018-08-25] MEDS ORDERED: ASPIRIN 81 MG CHEWABLE TAB PO SCH (09:00)
[2018-08-25] MEDS ORDERED: GABAPENTIN 100 MG CAP PO SCH (09:00)
[2018-08-25] MEDS ORDERED: Herbals/Supplements -Info Only PO SCH (09:00)
--- NOTE | 2018-08-25 10:34 | ASMTLACE ---
ROSALINAE Length of stay for Answers: 1 day current admission Acuity / Level of Answers: No Care: Did the patient have an inpatient admission? Comorbidities - select Answers: Coronary Artery Disease all that apply # of Emergency department Answers: 0 visits in the last 6 months Score: 3 Date Signed: 08/25/2018 10:33 AM Electronically Signed By:Michelle Keller RN
--- NOTE | 2018-08-25 10:37 | ASDISCHSUM ---
Discharge Information Plan Status:Home with No Needs Medically Cleared to Leave:08/25/2018 Discharge Date:08/25/2018 CM D/C Disposition: ADT D/C Disposition:Home, Routine, Self-Care Projected Discharge Date:08/25/2018 Transportation at D/C: Discharge Delay Reason: Follow-Up Date:08/25/2018 Discharge Slot: Final Diagnosis: Placement Information Patient Contact Information Contact Name:ROYA Relationship:Mark Address: City: [facility] Phone: State/Zip Code: Email: Financial Information Financial Class:Medicare Primary Plan Desc:MEDICARE OUTPATIENT Primary Plan Number:[id number] Secondary Plan Desc:[facility] [employer] Secondary Plan Number:[id number] Assessment Information LACE LACE Length of stay for Answers: 1 day current admission Acuity / Level of Answers: No Care: Did the patient have an inpatient admission? Comorbidities - select Answers: Coronary Artery Disease all that apply # of Emergency department Answers: 0 visits in the last 6 months Score: 3 Date Signed: 08/25/2018 10:33 AM Electronically Signed By:Michelle Keller RN Case Management Discharge Plan Note Case Management Discharge Discharge Order Complete? Answers: Yes Patient to Obtain Answers: Independently Medications Transportation Arranged Answers: Other Notes: self Discharge Comments Notes: 08/25/2018 Case Management Note Met w/ptKwan MARIANO signed. Pt admitted for CAD, positive stress test and chest pain. There are no therapies ordered. No identified case management needs d/t pt age and independence with ADL's prior to admission. Date Signed: 08/25/2018 10:36 AM Electronically Signed By:Michelle Keller RN Intervention Information Intervention Type:*MARIANO-Signed Date of Service:08/25/2018 10:33 AM Patient Type:Observation Staff Member:NIC Keller, Michelle Hours: Discipline: Severity: Comment:
--- NOTE | 2018-08-25 10:42 | GDS ---
[f rep st] DISCHARGE SUMMARY ADMISSION DIAGNOSES: 1. Coronary artery disease. 2. Chest pain. 3. Abnormal stress test. 4. Hyperlipidemia. 5. Hypothyroidism. DISCHARGE DIAGNOSES: 1. Coronary artery disease. 2. Status post percutaneous coronary intervention with ROMEL implantation into the proximal circumflex artery with a 2.25 x 16 Synergy stent. 3. Hyper lipidemia. 4. Hypothyroidism. PROCEDURES PERFORMED DURING HOSPITALIZATION: 1. Left heart catheterization. 2. Right heart catheterization. 3. Percutaneous coronary intervention of the proximal circumflex artery with a Synergy2.25 x 16 Synergy ROMEL. 4. Echocardiogram. BRIEF HISTORY: Please see H and P. Briefly, Ms. Hernandes is a 68-year-old female who is known to our practice. She has known history of coronary artery disease with previous ACS event in May of 2018, in which she had stents implanted to the LAD. She also has known history of hyperlipidemia and hypothyroidism. She recently saw Dr. Fam, her primary silica spray mixer, in the office, she was noted to report ongoing chest pressure and shortness of breath. The patient was ordered to undergo stress testing and echocardiogram, she did undergo stress test on August 15, it was noted that she had a medium size, moderate to severe intensity fixed, but partially reversible proximal to mid lateral deficit consistent with infarct and davdi-infarction. Due to this, she was sent to the hospital to undergo diagnostic angiogram and right heart catheterization. HOSPITAL COURSE: Patient admitted to the CV, prepped for procedure, and taken to the cardiac catheterization lab. There, Dr. Mendoza performed a right and left heart catheterization, he did note on the right heart a wedge pressure of 16, a PA pressure of 33/8, RV pressure of 32/5, RA pressure of 8, cardiac output of 4.0 with an index of 2.4. Coronary angiogram was then done, which noted patent stents of the LAD, the patient was noted to have a 90% narrowing in the proximal mid circumflex artery. LV-gram was done which noted an EF of 50 % with an EDP of 15. There was some concern about aneurysm. At that point, percutaneous coronary intervention was done of the circumflex in which a 2.25 x 16 drug-eluting stent was implanted with no complications. Patient was transferred back to the [facility], in which she underwent echocardiogram for further evaluation of the LV due to possible aneurysm, results showed mildly reduced LV systolic function with LVEF of 47% with mild hypokinesis of the inferior posterior lópez. No aneurysm was noted, borderline concentric LVH and mild diastolic dysfunction, mild LA enlargement, mild to moderate MR without mitral valve prolapse, mild TR with normal PA pressure is estimated. At that point, she was transferred to the PCU for overnight observation. The patient had been noted to be bradycardic with heart rates down in the 40s, her metoprolol was discontinued. Since then, she has been up and walking in the unit with normal sinus rhythm, she reports no chest pain, pressure symptoms suggesting of ischemia. She does report some mild pain at her right groin site, catheter insertion site, which is noted to have mild hematoma. PHYSICAL EXAMINATION: GENERAL APPEARANCE: Thin, well-groomed, female. She is alert and oriented to person, place, time, situation. Appears to be under no acute distress. CURRENT VITAL SIGNS: Blood pressure of 149/73, heart rate of 61 sinus rhythm on the monitor. Respirations 12, saturating 95% on room air. Temperature 36.6 degrees Celsius. HEENT: Head is normocephalic. Lips and tongue are pink and moist with no signs of cyanosis. Conjunctivae pink. NECK: Trachea is midline, +2 carotid pulses bilateral, no auscultated bruits, no jugular vein distention. RESPIRATORY: Lungs clear to auscultation. No rhonchi, rales, or wheezes. No accessory muscle use, no intercostal muscle retraction noted. CARDIAC: Regular rate, regular rhythm, S1, S2, 1/6 systolic murmur noted along the left sternal border. ABDOMEN: Soft, nontender. Bowel sounds x4 quadrants. No organomegaly. No palpable masses. SKIN: [place], warm, dry, no cyanosis, no clubbing, no peripheral edema. VASCULAR : +2 carotids bilateral, +2 radials bilateral, +1 dorsal pedal and posterior tibial pulses bilateral. CATHETER INSERTION SITE: Right groin site with palm- size soft hematoma noted, no redness, swelling, drainage, ecchymosis or hematoma. No auscultated bruit. . LABORATORY STUDIES: Laboratory studies upon discharge: Showing WBC of 5.0, hemoglobin 12.1, hematocrit of 38.0, platelet count of 143. Sodium 140, potassium 4.6, chloride 112, CO2 20, BUN 31, creatinine 1.6, glucose 90, calcium 9.8. Fasting lipid panel done on admission showing triglycerides of 194 , LDL 105, HDL of 35, total cholesterol 179. PROCEDURES: Please see above for results of left heart catheterization, right heart catheterization, percutaneous coronary intervention, and coronary PCI. DISCHARGE MEDICATIONS: Please see discharge medication reconciliation sheet: Note the patient's metoprolol succinate has been discontinued due to bradycardia , we will attempt to place her on low-dose Bystolic at 2.5 mg p.o. daily, this should also help with her blood pressure. She is currently not on an CRISTINA inhibitor due to her renal function, she will continue on dual antiplatelet therapy of aspirin and clopidogrel for 1 year, I have also increased her atorvastatin dosage to 20 mg p.o. daily due to her LDL being greater than 70. We will plan on repeating in 6 weeks. DISCHARGE INSTRUCTIONS: Post percutaneous coronary intervention discharge instructions, went over with the patient, including monitoring for signs of infection, bleeding precautions, activity restrictions, and medication compliancy. At the time of discharge, patient verbalizes understanding of all instructions and has no questions or concerns. Our office will call and make an appointment for the patient to be seen in the next 7-[address] Fam. At the time of discharge, patient verbalizes understanding all instructions, has no questions or concerns. She has been told that if any problems or concerns come up post discharge, she is notify our office or return to the hospital. Total time spent on discharge, greater than 30 minutes. /[id number]/MODL and [id number]/MODL MTDIvan
--- NOTE | 2018-08-27 10:39 | CPEKG ---
Test Reason : OPEN Blood Pressure : / mmHG Vent. Rate : 069 BPM Atrial Rate : 068 BPM P-R Int : 121 ms QRS Dur : 085 ms QT Int : 422 ms P-R-T Axes : 014 035 058 degrees QTc Int : 452 ms Sinus rhythm Nonspecific T abnormalities, lateral leads Confirmed by Jeramy Mendoza ([id number] on 08/27/2018 10:39:12 AM Referred By: Jeramy Mendoza Confirmed By:Jeramy Mendoza
--- NOTE | 2018-08-29 20:23 | CPEKG ---
Test Reason : OPEN Blood Pressure : / mmHG Vent. Rate : 042 BPM Atrial Rate : 000 BPM P-R Int : 142 ms QRS Dur : 087 ms QT Int : 478 ms P-R-T Axes : 040 037 060 degrees QTc Int : 400 ms Sinus bradycardia Probable left atrial enlargement In comparison to prior, heart rates have slowed Confirmed by Tyler Lazar ([id number]) on 08/29/2018 8:22:40 PM Referred By: Jeramy Mendoza Confirmed By:Tyler Lazar
--- NOTE | 2018-08-29 20:28 | CPEKG ---
Test Reason : OPEN Blood Pressure : / mmHG Vent. Rate : 042 BPM Atrial Rate : 042 BPM P-R Int : 158 ms QRS Dur : 091 ms QT Int : 510 ms P-R-T Axes : 045 024 059 degrees QTc Int : 427 ms Sinus bradycardia Similar to prior Confirmed by Tyler Lazar ([id number]) on 08/29/2018 8:28:00 PM Referred By: Jeramy Mendoza Confirmed By:Tyler Lazar
== END 2018-08-25 11:20 | disposition home or self-care (01) ==
LOC: FCATH 05:38 → F2W 09:03
PROVIDERS: ADMIT Internal Medicine Cardiovascular Disease; ATTEND Internal Medicine Cardiovascular Disease
DX: I25.10 Atherosclerotic heart disease of native coronary artery without angina pectoris (principal); R07.9 Chest pain, unspecified; R94.39 Abnormal result of other cardiovascular function study; E78.5 Hyperlipidemia, unspecified; E03.9 Hypothyroidism, unspecified
CPT/HCPCS: 93005; 93306; 93460; C1725; C1760; C1769; C1874; C1887; C9600; J0583; J1644; J2250; J3010; Q9967; J0461

== ENCOUNTER → 2018-09-18 | Outpatient (CLI) | payer OTHER | LOC: FIMAGING 08:52 ==

== ENCOUNTER 2018-09-29 15:36 | Observation (INO) | payer OTHER | END 2018-09-30 10:54 | disposition home or self-care (01) | LOC: F2W 18:12 ==